=== PATIENT | female | born 1990 | race African-American/Black ===

== ENCOUNTER 2019-07-14 15:41 | Emergency (ER) | payer SELFPAY ==
[2019-07-14 15:57] VITALS: BP 131/72; PULSE 111; RESP 16; TEMP 36.9; O2SAT 100
--- NOTE | 2019-07-14 16:07 | ED.FEMALEGU ---
HPI - Female Genitourinary General Chief complaint: Urogenital-Female Stated complaint: Possibe yeast infection Time Seen by Provider: 07/14/19 16:08 Source: patient and RN notes reviewed Mode of arrival: ambulatory Limitations: no limitations History of Present Illness HPI Narrative: This is a 28 years old female presents to the office for an evaluation of possible yeast infection. Symptoms began 2 days ago with vaginal irritation described as burning to itching. Complains of pain when urine touches her outter part of her vagina. Denies lesions that she could see. He does not recall vaginal discharge however she has been using vagercil and Monistat. She is sexually active with one partner; denies concern for STD. She is currently on amoxicillin for her dental pain. She has about 12 pills left. Related Data Allergies Allergy/AdvReac Type Severity Reaction Status Date / Time No Known Allergies Allergy Verified 07/14/19 15:45 Review of Systems Review of Systems: Narrative: CONSTITUTIONAL: Denies fever, chills, sweats. ENT: Denies congestion CARDIOVASCULAR: Denies chest pain RESPIRATORY: Denies dyspnea GASTROINTESTINAL: Denies abdominal pain, nausea, vomiting, diarrhea. GENITOURINARY: Denies urinary symptoms such as urgency, frequency, or blood in the urine SKIN: Denies lesion/sores MUSCULOSKELETAL: Denies acute back pain NEUROLOGIC: Denies lightheaded PMFSH Comments At time of signature, I agree with nursing past medical, surgical, social and family history. There is no relevant family history pertinent to the presenting complaint. Exam Narrative: Exam Narrative: GENERAL: This is a well-nourished, well-developed patient, in no apparent distress. CARDIOVASCULAR: Regular rate and rhythm without murmurs, gallops, or rubs. RESPIRATORY: Clear to auscultation. Breath sounds equal bilaterally. No wheezes, rales, or rhonchi. GASTROINTESTINAL: Abdomen soft, non-tender, nondistended. Bowel sounds are active.No guarding. SKIN: warm, intact with no suspicious lesions or rash, good texture and turgor. NEURO: awake, alert, and oriented to person, place and time. There were no obvious focal neurologic abnormalities. Steady gait : exam deferred since patient put monistat prior to arrival. [place] Coma Scale Eye Opening: Spontaneous 4 [place] Coma Scale Motor: Obeys Commands 6 [place] Coma Scale Verbal: Oriented 5 Course Vital Signs Vital signs: Vital Signs Temperature 98.4 F 07/14/19 15:57 Pulse Rate 111 H 07/14/19 15:57 Respiratory Rate 16 07/14/19 15:57 Blood Pressure 131/72 07/14/19 15:57 Pulse Oximetry 100 07/14/19 15:57 Temperature 98.4 F 07/14/19 15:57 Pulse Rate 111 H 07/14/19 15:57 Respiratory Rate 16 07/14/19 15:57 Blood Pressure 131/72 07/14/19 15:57 Pulse Oximetry 100 07/14/19 15:57 MDM - Female Genitourinary MDM Narrative Medical decision making narrative: Discharge instructions reviewed with patient, as well as provided in writing per nursing staff. The instructions also include specific and strict return/GO TO THE ER as well as f/u information. All questions have been answered, and the patient deny any further questions with discharge and discharge plan. Differential Diagnosis Differential diagnosis: Likely urinary tract infection, bacterial vaginosis, trichomoniasis, cervicitis, ovarian cyst, vaginitis and cystitis Lab Data Attestation: I reviewed the patient's lab results. Labs: Urine Glucose Negative Reference Range: Negative Urine Bilirubin Negative Reference Range: Negative Urine Ketone Negative Reference Range: Negative Urine Specific [place] 1.030 Reference Range:1.001-1.035 Urine Blood Trace Reference Range: Negative * * Urine pH 5.5 Reference Range: 5.0-9.0
== END 2019-07-14 16:23 | disposition home or self-care (01) ==
PROVIDERS: Emergency Provider Nurse Practitioner
DX: N76.0 Acute vaginitis (principal)
CPT/HCPCS: 81003; 87086; 87088; 99213; G0463